=== PATIENT | male | born 1995 | race African-American/Black ===

== ENCOUNTER 2019-03-01 08:45 | Emergency (ER) | payer OTHER ==
--- OUTSIDE RECORDS SUMMARY | 2019-03-01 09:06 | XMS REPORT | Continuity of Care Document ---
:1995 External Reference #:[id number] Author Name Lani Chavez N.P. Address [address] [place] [id number] Care Team Providers Name Role Phone Lani Chavez N.P. 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 pain........dx: l leg pain Work Note no work today Lani Chavez, 12/07/2018 N.P. Ondansetron 1 by mouth every 12tabs Lani Chavez, 12/07/2018 4mg Tablets 6-8h as needed N.P. Dispers nausea Vyvanse 1 by mouth every 30caps Lani Chavez, 06/06/2014 50mg Capsules day N.P. History Medications Amphetamine-Dextroamphet ER 1 po qd 30caps Scott, 12/02/2018 - 20mg Caps ER Lani N.P. 12/06/2018 24HR Ondansetron 1 by mouth every 12tabs Scott, 11/30/2018 - 4mg Tablets Dispers 6-8h as needed Lani N.P. 12/06/2018 nausea Work Note No work Scott, 11/05/2018 - 11/30/18-12/01/18 Lani N.P. 12/06/2018 for medical reasons Medical Note PPD placed r Scott, 07/22/2018 - forearm on Lani, N.P. 11/30/2018 07/22/18 Amoxicillin/Clavulanate 1 by mouth every 20tabs Scott, 09/15/2017 - Potassium 12 h for 10 days Lani, N.P. 07/22/2018 875-125mg Tablets Medical Note No work Scott, 09/15/2017 - 09/15/17-09/16/17 Lani, N.P. 07/22/2018 for medical reasons School Note may return to Scott, 09/04/2014 - unrestricted gym Lani, N.P. 09/04/2015 and sports 09/07/14 Medications Administered in Office Medication SIG Qnty Indications Ordering Provider Date PPD Lani Chavez, N.P. 07/22/2018 Injection PPD Lani Chavez, N.P. 10/20/2016 Injection Immunizations CPT Code Status Date Vaccine Lot # [id number] Given 06/14/2016 Influenza Vac, Quadrivalent, Split, 0.5mL Dosage, Im Use 89310 Given 04/08/2016 Menactra/Menveo Meningococcal Vaccine [id number] 18344 Given 06/08/2015 Influenza Vac, Quadrivalent, Split, 0.5mL Dosage, [id number] Im Use 65628 Given 07/28/2014 Afluria Or Fluvirin Flu Vac Intramuscular [id number] 81696 Given 07/26/2009 Varicella (Chicken Pox) Immunization 96693 Given 05/10/2008 Tdap (Adacel) Ages 7 And Above Only 07903 Given 04/02/2002 IPV / Poliomyelitis Immunization 51705 Given 03/30/2002 DTaP Immunization 7 Yrs & Younger 46108 Given 03/28/2002 MMR Virus Immunization 65484 Given 03/16/2001 Pneumococcal (Prevnar 7)Child Under Five 33700 Given 12/14/1997 Hib HbOC Conjugate 4 Dose Schedule 38156 Given 12/05/1997 DTaP Immunization 7 Yrs & Younger 64034 Given 09/15/1997 MMR Virus Immunization 29485 Given 05/16/1997 DTP & Hib Immunization 85889 Given 05/16/1997 Oral Poliovirus Immunization 63950 Given 05/16/1997 Hepatitis B Vac Ped/Adolescent 3 Dose Schedule 88279 Given 01/11/1997 Oral Poliovirus Immunization 91089 Given 01/04/1997 DTP & Hib Immunization 64341 Given 1996 Oral Poliovirus Immunization 70469 Given 1996 Hepatitis B Vac Ped/Adolescent 3 Dose Schedule 13078 Given 1996 DTP & Hib Immunization 71635 Given 1996 Hepatitis B Vac Ped/Adolescent 3 Dose Schedule 01422 Refused 07/22/2018 Tetanus Immune Globulin Intramuscular 48671 Refused 07/22/2018 Meningococcal B(trumenba)recombnt Lipoprotein Vaccine Serogroup B 87576 Refused 07/22/2018 HPV Vaccine (Gardasil) 3 Dose Schedule 38515 Refused 07/22/2018 Influenza Vac, Quadrivalent, Split, 0.5mL Dosage, Im Use 26572 Refused 07/22/2018 Tetanus And Diptheria Toxoids For Adult Use- preservative free 35901 Refused 07/22/2018 Tdap (Adacel) Ages 7 And Above Only 22463 Refused 09/15/2017 Influenza Vac, Quadrivalent, Split, 0.5mL Dosage, Im Use Vital Signs Date Vital Result Comment 02/22/2019 8:22am Body Temperature 98.1 F Weight 156.00 lb Heart Rate 59 /min BP Systolic 110 mmHg BP Diastolic 62 mmHg O2 % BldC Oximetry 97 % 12/07/2018 11:07am Body Temperature 98.8 F Weight 157.00 lb Heart Rate 81 /min BP Systolic 114 mmHg BP Diastolic 62 mmHg O2 % BldC Oximetry 98 % 12/06/2018 3:09pm Body Temperature 98.2 F Weight 157.38 lb Heart Rate 65 /min BP Systolic 120 mmHg BP Diastolic 64 mmHg O2 % BldC Oximetry 96 % 11/30/2018 9:51am Body Temperature 97.9 F Weight 159.25 lb Heart Rate 62 /min BP Systolic 112 mmHg BP Diastolic 68 mmHg O2 % BldC Oximetry 98 % 11/05/2018 9:33am Body Temperature 98.6 F Weight 165.00 lb Heart Rate 76 /min BP Systolic 108 mmHg BP Diastolic 52 mmHg O2 % BldC Oximetry 98 % 07/22/2018 8:55am Body Temperature 98.1 F Weight 163.00 lb Heart Rate 66 /min BP Systolic 106 mmHg BP Diastolic 72 mmHg O2 % BldC Oximetry 98 % 09/15/2017 10:07am Body Temperature 98.8 F Weight 145.50 lb Heart Rate 95 /min BP Systolic 114 mmHg BP Diastolic 72 mmHg O2 % BldC Oximetry 97 % 05/29/2017 12:41pm Body Temperature 98.1 F Weight 148.12 lb Heart Rate 64 /min BP Systolic 124 mmHg BP Diastolic 69 mmHg O2 % BldC Oximetry 98 % 10/20/2016 2:23pm Body Temperature 98.1 F Weight 155.38 lb Heart Rate 70 /min BP Systolic 149 mmHg BP Diastolic 74 mmHg O2 % BldC Oximetry 98 % 04/08/2016 10:28am Body Temperature 98.1 F Weight 148.38 lb Heart Rate 85 /min BP Systolic 100 mmHg BP Diastolic 68 mmHg O2 % BldC Oximetry 98 % 01/08/2016 2:52pm Body Temperature 98.1 F Weight 149.00 lb Heart Rate 89 /min BP Systolic 131 mmHg BP Diastolic 73 mmHg 10/08/2015 3:06pm Body Temperature 97.9 F Weight 150.50 lb Heart Rate 80 /min BP Systolic 126 mmHg BP Diastolic 63 mmHg 09/04/2015 2:32pm Body Temperature 98.1 F Weight 147.00 lb Weight Percentile 41st Heart Rate 107 /min BP Systolic 133 mmHg BP Diastolic 75 mmHg O2 % BldC Oximetry 99 % 06/08/2015 9:25am Body Temperature 98.6 F Weight 139.38 lb Weight Percentile 30th Heart Rate 84 /min BP Systolic 132 mmHg BP Diastolic 69 mmHg 03/07/2015 7:52am Body Temperature 98.1 F Weight 145.38 lb Weight Percentile 42nd Heart Rate 78 /min BP Systolic 116 mmHg BP Diastolic 67 mmHg 12/08/2014 7:45am Weight 146.00 lb Weight Percentile 45th Heart Rate 73 /min BP Systolic 114 mmHg BP Diastolic 57 mmHg 09/07/2014 2:28pm Body Temperature 97.6 F Weight 136.38 lb Weight Percentile 30th Heart Rate 92 /min BP Systolic 128 mmHg BP Diastolic 76 mmHg Height 72 inches 6'0" Height Percentile 83 % BMI (Body Mass Index) 18.5 kg/m2 Body Mass Index Percentile 7 % 09/04/2014 2:12pm Body Temperature 97.5 F Weight 144.00 lb Weight Percentile 43rd Heart Rate 94 /min BP Systolic 133 mmHg BP Diastolic 75 mmHg 06/06/2014 1:01pm Body Temperature 98.4 F Weight 136.00 lb Weight Percentile 32nd Heart Rate 87 /min BP Systolic 137 mmHg BP Diastolic 68 mmHg Height 72 inches 6'0" Height Percentile 84 % O2 % BldC Oximetry 98 % BMI (Body Mass Index) 18.4 kg/m2 Body Mass Index Percentile 8 % Procedures Date Code Description Status 07/22/2018 36402 Admin Of Inj (Therapeutic Phrophylactic Or Diagnostic Subq Completed Inj 06/08/2015 77695 Admin Of Inj (Therapeutic Phrophylactic Or Diagnostic Subq Completed Inj Encounters Type Date Location Provider Dx Diagnosis Office Visit 12/07/2018 Lani Ma, R10.9 Unspecified abdominal 10:45a N.P. pain R11.0 Nausea Office Visit 12/06/2018 3:00p Sulma Chavez T88.7xxA Unsp adverse effect of Mashelle, N.P. drug or medicament, init encntr Office Visit 11/30/2018 9:45a Sulma Chavez, K52.9 Noninfective Mashelle, N.P. gastroenteritis and colitis, unspecified F90.0 Attn-defct hyperactivity disorder, predom inattentive type Office Visit 11/05/2018 9:30a Lani Ma, J02.9 Acute pharyngitis, N.P. unspecified Office Visit 07/22/2018 9:00a Lani Ma, Z00.00 Encntr for general N.P. adult medical exam w/o abnormal findings F90.0 Attn-defct hyperactivity disorder, predom inattentive type Z11.1 Encounter for screening for respiratory tuberculosis Office Visit 09/15/2017 9:45a Lani Ma J01.00 Acute maxillary N.P. sinusitis, unspecified Office Visit 05/29/2017 12:30p Lani Ma, F90.0 Attn-defct N.P. hyperactivity disorder, predom inattentive type Office Visit 10/20/2016 3:00p Lani Ma, F90.0 Attn-defct N.P. hyperactivity disorder, predom inattentive type Z11.1 Encounter for screening for respiratory tuberculosis Z02.89 Encounter for other administrative examinations Office Visit 04/08/2016 10:30a Lani Ma, Z23 Encounter for N.P. immunization Z02.89 Encounter for other administrative examinations Office Visit 01/08/2016 3:30p Lani Ma, F90.0 Attn-defct N.P. hyperactivity disorder, predom inattentive type Office Visit 10/08/2015 3:15p Lani Ma, F90.0 Attn-defct N.P. hyperactivity disorder, predom inattentive type Office Visit 09/04/2015 3:00p Lani Ma, F90.0 Attn-defct N.P. hyperactivity disorder, predom inattentive type Office Visit 06/08/2015 9:30a Lani Ma, 314.00 Attention Deficit N.P. Disorder W/O Mention Of Hyperactivity V04.81 Need For Prophylactic Vaccination & Inoculation/Influenza Office Visit 03/07/2015 8:15a Lani Ma, 314.00 Attention Deficit N.P. Disorder W/O Mention Of Hyperactivity Office Visit 12/08/2014 8:00a Lani Ma, 314.00 Attention Deficit N.P. Disorder W/O Mention Of Hyperactivity Office Visit 09/07/2014 2:30p Lani Ma, 920 Contusion Face Scalp N.P. & Neck Except Eyes 314.00 Attention Deficit Disorder W/O Mention Of Hyperactivity Office Visit 09/04/2014 2:15p Lani aM, 920 Contusion Face Scalp N.P. & Neck Except Eyes Office Visit 06/06/2014 1:00p Lani Ma, V20.2 Exam Infant Or Child N.P. Routine Health Check Plan of Treatment 02/22/2019 - Lani Chavez, N.P.Z13.31 Encounter for screening for depressionComments:denies increased feelings depression/anxiety at this timeF90.0 Attention-deficit hyperactivity disorder, predominantly inatComments: stable on current dose Vyvanse 50mg qd-cont same and report eunfgH91.605 Pain in LEFT legComments:MS in origin, patient agrees to f/u PT for furether eval and txcautioned to avoid excessive bending,opnavhestE55.2 CervicalgiaComments: meds, warm heat ROM execises, report non-resolution 3-5 daysAllNew Medication: Physical Therapy - evaluate and treat l thigh pain........dx: l leg pain
[2019-03-01 09:11] VITALS: BP 116/72
--- NOTE | 2019-03-01 09:21 | UC ---
Throat Pain/Nasal Fidencio HPI - HPI Summary HPI Summary: nasal congestion x 1 day , sore throat 2 days, cough , pnd, sinus pain and pressure no fever, + chills, body aches not better with otc meds - History of Current Complaint Chief Complaint: UCGeneralIllness Stated Complaint: SINUS CONCERN,NAUSEA Time Seen by Provider: 03/01/19 09:08 Hx Obtained From: Patient Onset/Duration: Gradual Onset, Lasting Days - 2, Still Present Severity: Moderate Pain Intensity: 4 Cough: Nonproductive Associated Signs & Symptoms: Positive: Sinus Discomfort, Nasal Discharge. Negative: Dysphagia, FB Sensation, Drooling, Wheezing, Hoarseness, Fever, Vomiting - Allergies/Home Medications Allergies/Adverse Reactions: Allergies Allergy/AdvReac Type Severity Reaction Status Date / Time No Known Allergies Allergy Verified 03/01/19 09:12 Home Medications: Home Medications D-Methorphan/PE/Acetaminophen [Day Time Cold-Flu Liquid] 30 ml PO ONCE 03/01/19 [History Confirmed 03/01/19] PMH/Surg Hx/FS Hx/Imm Hx Previously Healthy: Yes - Surgical History Surgical History: None - Family History Known Family History: Negative: Diabetes - Social History Alcohol Use: Occasionally Substance Use Type: None Smoking Status (MU): Never Smoked Tobacco Review of Systems All Other Systems Reviewed And Are Negative: Yes Constitutional: Positive: Fever, Chills, Fatigue Skin: Positive: Negative Eyes: Positive: Negative ENT: Positive: Sore Throat, Ear Ache, Nasal Discharge, Sinus Congestion, Sinus Pain/Tenderness Respiratory: Positive: Cough Cardiovascular: Positive: Negative Is Patient Immunocompromised?: No Physical Exam Triage Information Reviewed: Yes Appearance: Well-Appearing, No Pain Distress, Well-Nourished Vital Signs: Initial Vital Signs Temp 98.1 F 03/01/19 09:06 Pulse 72 03/01/19 09:06 Resp 18 03/01/19 09:06 BP 116/72 03/01/19 09:06 Pulse Ox 100 03/01/19 09:06 Vital Signs Reviewed: Yes Eyes: Positive: Conjunctiva Clear ENT: Positive: Normal ENT inspection, Hearing grossly normal, Pharynx normal, Nasal congestion, Nasal drainage, TMs normal. Negative: Pharyngeal erythema, TM bulging, TM dull, TM red Dental Exam: Normal Neck: Positive: Supple, Nontender, No Lymphadenopathy Respiratory: Positive: Chest non-tender, Lungs clear, Normal breath sounds Cardiovascular: Positive: RRR, No Murmur, Pulses Normal Skin Exam: Normal Throat Pain/Nasal Course/Dx - Differential Dx/Diagnosis Provider Diagnosis: URI (upper respiratory infection) Discharge - Sign-Out/Discharge Documenting (check all that apply): Patient Departure All imaging exams completed and their final reports reviewed: No Studies - Discharge Plan Condition: Stable Disposition: HOME Patient Education Materials: Upper Respiratory Infection (DC) Referrals: Lani Chavez NP [Primary Care Provider] - If Needed - Billing Disposition and Condition Condition: STABLE Disposition: Home
== END 2019-03-01 09:22 | disposition home or self-care (01) ==
LOC: UCCORT 08:45
DX: J06.9 Acute upper respiratory infection, unspecified (principal)
CPT/HCPCS: 99211; G0463

== ENCOUNTER 2019-04-03 18:22 | Emergency (ER) | payer OTHER ==
--- OUTSIDE RECORDS SUMMARY | 2019-04-03 18:29 | XMS REPORT | Continuity of Care Document ---
:1996 External Reference #:[id number] Author Name Lani Chavez N.P. Address [address] [place] [id number] Care Team Providers Name Role Phone Lani Chavez N.P. 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 12/06/2018 24HR Ondansetron 1 by mouth every 12tabs Scott, 11/30/2018 - 4mg Tablets Dispers 6-8h as needed Lani N.P. 12/06/2018 nausea Work Note No work Scott, 11/05/2018 - 11/30/18-12/01/18 Lani N.P. 12/06/2018 for medical reasons Medical Note PPD placed r Scott, 07/22/2018 - forearm on Lani, N.P. 11/30/2018 07/22/18 Amoxicillin/Clavulanate 1 by mouth every 20tabs Scott 09/15/2017 - Potassium 12 h for 10 days Lani, N.P. 07/22/2018 875-125mg Tablets Medical Note No work Scott, 09/15/2017 - 09/15/17-09/16/17 Lani N.P. 07/22/2018 for medical reasons School Note may return to Scott, 09/04/2014 - unrestricted gym Lani, N.P. 09/04/2015 and sports 09/07/14 Medications Administered in Office Medication SIG Qnty Indications Ordering Provider Date Lani Mcadams, N.P. 07/22/2018 Injection PPD Lani Chavez, N.P. 10/20/2016 Injection Immunizations CPT Code Status Date Vaccine Lot # [id number] Given 06/14/2016 Influenza Vac, Quadrivalent, Split, 0.5mL Dosage, Im Use 69857 Given 04/08/2016 Menactra/Menveo Meningococcal Vaccine [id number] 10190 Given 06/08/2015 Influenza Vac, Quadrivalent, Split, 0.5mL Dosage, [id number] Im Use 06521 Given 07/28/2014 Afluria Or Fluvirin Flu Vac Intramuscular [id number] 55179 Given 07/26/2009 Varicella (Chicken Pox) Immunization 48725 Given 05/10/2008 Tdap (Adacel) Ages 7 And Above Only 87352 Given 04/02/2002 IPV / Poliomyelitis Immunization 05211 Given 03/30/2002 DTaP Immunization 7 Yrs & Younger 89939 Given 03/28/2002 MMR Virus Immunization 40034 Given 03/16/2001 Pneumococcal (Prevnar 7)Child Under Five 57645 Given 12/14/1997 Hib HbOC Conjugate 4 Dose Schedule 32240 Given 12/05/1997 DTaP Immunization 7 Yrs & Younger 09289 Given 09/15/1997 MMR Virus Immunization 86399 Given 05/16/1997 DTP & Hib Immunization 96299 Given 05/16/1997 Oral Poliovirus Immunization 58885 Given 05/16/1997 Hepatitis B Vac Ped/Adolescent 3 Dose Schedule 04676 Given 01/11/1997 Oral Poliovirus Immunization 99232 Given 01/04/1997 DTP & Hib Immunization 94069 Given 1996 Oral Poliovirus Immunization 08850 Given 1996 Hepatitis B Vac Ped/Adolescent 3 Dose Schedule 82420 Given 1996 DTP & Hib Immunization 52830 Given 1996 Hepatitis B Vac Ped/Adolescent 3 Dose Schedule 13334 Refused 07/22/2018 Tetanus Immune Globulin Intramuscular 34447 Refused 07/22/2018 Meningococcal B(trumenba)recombnt Lipoprotein Vaccine Serogroup B 07703 Refused 07/22/2018 HPV Vaccine (Gardasil) 3 Dose Schedule 16940 Refused 07/22/2018 Influenza Vac, Quadrivalent, Split, 0.5mL Dosage, Im Use 94101 Refused 07/22/2018 Tetanus And Diptheria Toxoids For Adult Use- preservative free 17866 Refused 07/22/2018 Tdap (Adacel) Ages 7 And Above Only 32704 Refused 09/15/2017 Influenza Vac, Quadrivalent, Split, 0.5mL Dosage, Im Use Vital Signs Date Vital Result Comment 03/31/2019 10:31am Body Temperature 98.4 F Weight 148.00 lb Heart Rate 81 /min BP Systolic 122 mmHg BP Diastolic 60 mmHg O2 % BldC Oximetry 96 % 02/22/2019 8:22am Body Temperature 98.1 F Weight [...] kg/m2 Body Mass Index Percentile 8 % Results Test Date Facility Test Result H/L Range Note Laboratory test finding 03/31/2019 [facility] <pending> Procedures Date Code Description Status 07/22/2018 51480 Admin Of Inj (Therapeutic Phrophylactic Or Diagnostic Subq Completed Inj 06/08/2015 63144 Admin Of Inj (Therapeutic Phrophylactic Or Diagnostic Subq Completed Inj Encounters Type Date Location Provider Dx Diagnosis Office Visit 02/22/2019 Lani Ma, Z13.31 Encounter for 8:15a N.P. screening for depression F90.0 Attn-defct hyperactivity disorder, predom inattentive type M79.605 Pain in LEFT leg M54.2 Cervicalgia Office Visit 12/07/2018 10:45a Lani Ma, R10.9 Unspecified abdominal N.P. pain R11.0 Nausea Office Visit 12/06/2018 3:00p Sulma Chavez T88.7xxA Unsp adverse effect of Lani, N.P. drug or medicament, init encntr Office Visit 11/30/2018 9:45a Sulma Chavez K52.9 Noninfective Lani, N.P. gastroenteritis and colitis, unspecified F90.0 Attn-defct hyperactivity disorder, predom inattentive type Office Visit 11/05/2018 9:30a Lani Ma, J02.9 Acute pharyngitis, N.P. unspecified Office Visit 07/22/2018 9:00a Lani Ma, Z00.00 Encntr for general N.P. adult medical exam w/o abnormal findings F90.0 Attn-defct hyperactivity disorder, predom inattentive type Z11.1 Encounter for screening for respiratory tuberculosis Office Visit 09/15/2017 9:45a Lani Ma, J01.00 Acute maxillary N.P. sinusitis, unspecified Office Visit 05/29/2017 12:30p Lani Ma F90.0 Attn-defct N.P. hyperactivity disorder, predom inattentive type Office Visit 10/20/2016 3:00p Lani Ma F90.0 Attn-defct N.P. hyperactivity disorder, predom inattentive type Z11.1 Encounter for screening for respiratory tuberculosis Z02.89 Encounter for other administrative examinations Office Visit 04/08/2016 10:30a Lani Ma, Z23 Encounter for N.P. immunization Z02.89 Encounter for other administrative examinations Office Visit 01/08/2016 3:30p Lani Ma F90.0 Attn-defct N.P. hyperactivity disorder, predom inattentive type Office Visit 10/08/2015 3:15p Lani Ma F90.0 Attn-defct N.P. hyperactivity disorder, predom inattentive type Office Visit 09/04/2015 3:00p Lani Ma F90.0 Attn-defct N.P. hyperactivity disorder, predom inattentive [...] Of Hyperactivity Office Visit 09/04/2014 2:15p Lani Ma, 920 Contusion Face Scalp N.P. & Neck Except Eyes Office Visit 06/06/2014 1:00p Lani Ma, V20.2 Exam Or Child N.P. Routine Health Check Plan of Treatment 03/31/2019 - Lani Chavez, N.P.R53.83 Other fatigueComments:most likely result of lifestyle and possibly griefsuggest counselingwill check Lyme titer and TSH flu lab kafbnkrJ92.605 Pain in LEFT legComments:given persistentce of pain and failure to improve with PT, pt agrees to see orthopedics for further evalF90.0 Attention-deficit hyperactivity disorder, predominantly inatComments: stable on current dose Vyvanse 50mg qd-cont same and report sdkzpJ37.01 Otalgia , RIGHT earComments:suggest pt follow-through with ENT referralAllReferral:Sylwia Lee DR, Surgery,Orth[facility] Adult Re[facility]
[2019-04-03 18:57] VITALS: BP 114/59
[2019-04-03] MEDS ORDERED: Ibuprofen TAB* 600 MG PO ONE (19:03)
--- NOTE | 2019-04-03 19:07 | UC ---
Hand/Wrist HPI - HPI Summary HPI Summary: Patient was moving a piece of furniture and hit the right hand, hard to move after the injury pain and swelling have increased, minor numbenss in middle finger. - History Of Current Complaint Chief Complaint: UCUpperExtremity Stated Complaint: RIGHT HAND INJURY Time Seen by Provider: 04/03/19 18:57 Hx Obtained From: Patient ?: No Onset/Duration: Sudden Onset, Lasting Hours Severity Initially: Severe Severity Currently: Severe Pain Intensity: 8 Character Of Pain: Aching, Spasmodic Aggravating Factor(s): Movement Alleviating Factor(s): Nothing Associated Signs And Symptoms: Positive: Swelling, Weakness, Numbness/Tingling - Allergies/Home Medications Allergies/Adverse Reactions: Allergies Allergy/AdvReac Type Severity Reaction Status Date / Time No Known Allergies Allergy Verified 04/03/19 18:57 Home Medications: Home Medications Lisdexamfetamine Dimesylate [Vyvanse] 25 mg PO DAILY 04/03/19 [History Confirmed 04/03/19] PMH/Surg Hx/FS Hx/Imm Hx Previously Healthy: Yes - Surgical History Surgical History: None - Family History Known Family History: Negative: Diabetes - Social History Alcohol Use: Occasionally Substance Use Type: None Smoking Status (MU): Never Smoked Tobacco Review of Systems All Other Systems Reviewed And Are Negative: Yes Musculoskeletal: Positive: Arthralgia, Decreased ROM, Edema, Myalgia Is Patient Immunocompromised?: No Physical Exam Triage Information Reviewed: Yes Appearance: Well-Appearing, Well-Nourished, Pain Distress Vital Signs: Initial Vital Signs Temp 98.9 F 04/03/19 18:55 Pulse 66 04/03/19 18:55 Resp 16 04/03/19 18:55 BP 114/59 04/03/19 18:55 Pulse Ox 100 04/03/19 18:55 Vital Signs Reviewed: Yes Eye Exam: Normal ENT Exam: Normal Dental Exam: Normal Neck exam: Normal Respiratory Exam: Normal Cardiovascular Exam: Normal Abdominal Exam: Normal Musculoskeletal: Positive: Strength Limited @, ROM Limited @, Edema @ - over the 2nd and 3rd knuckle Neurological Exam: Normal Psychological Exam: Normal Skin Exam: Normal Hand/Wrist Course/Dx - Course Course Of Treatment: Hx obtained, exam performed ,meds reviewed, xray obtained, ibuprofen given of pain novisible fracture, will be read by radiology in the AM. manish wrap applied - Differential Dx/Diagnosis Differential Diagnosis/HQI/PQRI: Contusion, Fracture Provider Diagnosis: Contusion of hand Discharge - Sign-Out/Discharge Documenting (check all that apply): Patient Departure All imaging exams completed and their final reports reviewed: No - Discharge Plan Condition: Stable Disposition: HOME Patient Education Materials: Contusion in Adults (ED) Referrals: Lani Chavez NP [Primary Care Provider] - Jesus Fuller MD [Medical Doctor] - Additional Instructions: 1. use the manish to help with swelling and support. 2. Warm water soaks to help increased range of motion 3. COntinue with ibuprofen 400 - 600 mg every 4-6 hours. 4. FOllow up if not improving in the next week. - Billing Disposition and Condition Condition: STABLE Disposition: Home
--- NOTE | 2019-04-04 13:09 | ED ---
Progress - Progress Note Progress Note: xray read reviewed and neg Course/Dx - Diagnoses Provider Diagnoses: Contusion of hand Discharge - Sign-Out/Discharge Documenting (check all that apply): Patient Departure All imaging exams completed and their final reports reviewed: Yes - Discharge Plan Condition: Stable Disposition: HOME Patient Education Materials: Contusion in Adults (ED) Referrals: Jesus Fuller MD [Medical Doctor] - Lani Chavez NP [Primary Care Provider] - Additional Instructions: 1. use the manish to help with swelling and support. 2. Warm water soaks to help increased range of motion 3. COntinue with ibuprofen 400 - 600 mg every 4-6 hours. 4. FOllow up if not improving in the next week. - Billing Disposition and Condition Condition: STABLE Disposition: Home
== END 2019-04-03 19:52 | disposition home or self-care (01) ==
LOC: UCCORT 18:22
DX: S60.221A Contusion of right hand, initial encounter (principal); W22.03XA Walked into furniture, initial encounter; Y93.89 Activity, other specified; Y92.9 Unspecified place or not applicable
CPT/HCPCS: 99212; A9270-GY; G0463

== ENCOUNTER 2019-06-03 17:16 | Emergency (ER) | payer OTHER ==
[2019-06-03 18:17] VITALS: BP 122/62
[2019-06-03] MEDS ORDERED: Azithromycin TAB* 250 MG PO ONE (18:23)
--- NOTE | 2019-06-03 19:50 | UC ---
Complaint Male HPI - HPI Summary HPI Summary: 23-year-old male presents with complaints of dysuria. He was seen at this facility on 05/30/2019 for 3 day history of dysuria. He was noted to have a new sex partner at that time. Recommended treatment for a possible sexually transmitted infection with Rocephin and azithromycin however the patient refused the Rocephin at that time. Testing came back positive for Chlamydia. When the patient was contacted with these results he expressed that he had had a re-exposure and was called in a prescription for a second course of azithromycin. Patient states he filled but did not take this prescription but instead gave it to his partner to take. Denies fever, chills, abdominal pain, nausea, vomiting, penile discharge, testicular pain or swelling. - History of Current Complaint Chief Complaint: UCGU Stated Complaint: URINARY COMPLAINT Time Seen by Provider: 06/03/19 19:01 Hx Obtained From: Patient Pain Intensity: 0 - Allergies/Home Medications Allergies/Adverse Reactions: Allergies Allergy/AdvReac Type Severity Reaction Status Date / Time No Known Allergies Allergy Verified 06/03/19 18:17 PMH/Surg Hx/FS Hx/Imm Hx Previously Healthy: Yes - Surgical History Surgical History: None - Family History Known Family History: Positive: None Negative: Diabetes - Social History Occupation: Employed Full-time Lives: With Family Alcohol Use: Occasionally Substance Use Type: None Smoking Status (MU): Never Smoked Tobacco Review of Systems All Other Systems Reviewed And Are Negative: Yes Constitutional: Negative: Fever, Chills Skin: Negative: Rash Respiratory: Positive: Negative Cardiovascular: Positive: Negative Gastrointestinal: Negative: Abdominal Pain, Vomiting, Diarrhea, Nausea Genitourinary: Positive: Dysuria. Negative: Hematuria, Frequency, Urgency, Vaginal/Penile Discharge, Other - testicular pain/swelling Musculoskeletal: Positive: Negative Neurological: Positive: Negative Is Patient Immunocompromised?: No Physical Exam - Summary Physical Exam Summary: GENERAL APPEARANCE: Well developed, well nourished, alert and cooperative, and appears to be in no acute distress. EYES: Conjunctiva clear. No drainage. NOSE: No nasal discharge. THROAT: Pharynx normal No tonsilar inflammation, swelling, exudate, or lesions. Uvula midline. Oral cavity normal. Teeth and gingiva in good general condition. NECK: Neck supple, non-tender without lymphadenopathy. CARDIAC: Normal S1 and S2. No S3, S4 or murmurs. Rhythm is regular. There is no peripheral edema, cyanosis or pallor. Extremities are warm and well perfused. Capillary refill is less than 2 seconds. Peripheral pulses intact. LUNGS: Clear to auscultation without rales, rhonchi, wheezing or diminished breath sounds. ABDOMEN: Positive bowel sounds. Soft, nondistended, nontender. No guarding or rebound. No masses or hepatosplenomegally. No CVA tenderness. GENITOURINARY: No penile lesions. No discharge noted. Testicles smooth, non- tender and without swelling. MUSKULOSKELETAL: ROM intact to all extremities. No joint erythema or tenderness. Normal muscular development. Normal gait. SKIN: Skin normal color, texture and turgor with no lesions or eruptions. Triage Information Reviewed: Yes Vital Signs: Initial Vital Signs Temp 98.6 F 06/03/19 18:15 Pulse 66 06/03/19 18:15 Resp 15 06/03/19 18:15 BP 122/62 06/03/19 18:15 Pulse Ox 100 06/03/19 18:15 Vital Signs Reviewed: Yes Complaint Male Course/Dx - Course Course Of Treatment: 23-year-old male presents with complaints of dysuria. He was seen at this facility on 05/30/2019 for 3 day history of dysuria. He was noted to have a new sex partner at that time. Recommended treatment for a possible sexual transmitted infection with Rocephin and azithromycin however the patient refused the Rocephin at that time. Testing came back positive for Chlamydia. When the patient was contacted with these results he expressed that he had had a re-exposure and was called in a prescription for a second course of azithromycin. Patient states he filled but did not take this prescription but instead gave it to his partner to take. Denies fever, chills, abdominal pain, nausea, vomiting, penile discharge, testicular pain or swelling. Afebrile. Vital signs stable. Exam was overall unremarkable. Patient was treated in the clinic for the re-exposure with azithromycin 1 g PO. He was counseled to abstain from all sexual intercourse for the next week as well as on consistent use of condoms to reduce his risk of eric a sexually transmitted infection. He is to follow-up with his primary care provider in 2 weeks for repeat testing. Anticipatory guidance and warning symptoms reviewed with the patient. Verbalizes understanding and agrees with plan of care. - Differential Dx/Diagnosis Differential Diagnosis/HQI/PQRI: Epididymitis, Urinary Tract Infection, Other - STI Provider Diagnosis: Chlamydia Discharge ED - Sign-Out/Discharge Documenting (check all that apply): Patient Departure All imaging exams completed and their final reports reviewed: No Studies - Discharge Plan Condition: Stable Disposition: HOME Patient Education Materials: Chlamydia (ED), Safe Sex (ED) Referrals: Lani Chavez NP [Primary Care Provider] - 2 Weeks Additional Instructions: We have provided you with another course of azithromycin 1 g to treat for the positive Chlamydia infection since you had a possible re-exposure. It is important that he refrain from any type of sexual intercourse for the next week to prevent spreading the infection. You will need to inform all of your sexual partners of your positive test so that they may be evaluated and treated. Absences the best way to prevent the possibility of eric a sexually transmitted infection however if you're going to be sexually active it is important that you use a condom consistently to minimize her risk of exposure. Follow-up with your primary care provider in 2 weeks for retesting. Seek immediate medical attention in the emergency room develop fever greater than 100.5 F, have severe abdominal pain, testicular pain or swelling, or any worsening of symptoms. - Billing Disposition and Condition Condition: STABLE Disposition: Home
== END 2019-06-03 19:59 | disposition home or self-care (01) ==
LOC: UCCORT 17:16
DX: A74.9 Chlamydial infection, unspecified (principal)
CPT/HCPCS: 99212; A9270-GY; G0463